=== PATIENT | male | born 1965 | race Asian ===

== ENCOUNTER → 2016-06-07 | Outpatient (CLI) | payer OTHER ==
[~2016-06-07] VITALS: Ht 162.6 cm; Wt 61.2 kg
[~2016-06-07] MED LIST: INSULIN HUMAN REGULAR 1,000 UNITS/10 ML VIAL SQ PRN; LACTATED RINGER'S 1000 ML IV SCH; METOPROLOL TARTRATE 25 MG TAB PO PRN; NEXI20CA PO; PROPOFOL 200 MG/20 ML AMP IV ONE; SODIUM CHLORID 0.9% 500 ML IV SCH
[2016-06-07 08:39] VITALS: BP 120/79; PULSE 76; RESP 16; TEMP 98; O2SAT 99
[2016-06-07 10:46] VITALS: TEMP 97.4
[2016-06-07 11:15] VITALS: BP 101/65; PULSE 56; RESP 16; O2SAT 100
--- NOTE | 2016-06-07 11:20 | EKG ---
Date Performed: 06/07/2016 Time Performed: 08:24:06 PTAGE: 50 years EKG: Sinus rhythm NORMAL ECG NO PREVIOUS TRACING DOCTOR: Jamar Cruz Interpretating Date/Time 06/07/2016 11:18:27
== END ==
LOC: HEND 07:16
PROVIDERS: ATTEND Internal Medicine Gastroenterology
DX: Z12.11 Encounter for screening for malignant neoplasm of colon (principal); D12.2 Benign neoplasm of ascending colon; K25.9 Gastric ulcer, unspecified as acute or chronic, without hemorrhage or perforation; K29.50 Unspecified chronic gastritis without bleeding; R10.13 Epigastric pain; Z01.810 Encounter for preprocedural cardiovascular examination
CPT/HCPCS: 00810; 43239; 45385; 88305; 88312; 93005; J7120